=== PATIENT | female | born 1940 | race Caucasian/White ===

== ENCOUNTER 2018-10-25 16:23 | Observation (INO) | payer MEDICARE ==
[~2018-10-25 16:23] MED LIST: ISOVUE-370 76%-LOCM 1 ML ONE
[2018-10-25 16:49] LABS: #Eosinphils 0.2 thou/uL (0.0-0.7); #Lymphocytes 1.3 thou/uL (1.20-3.40); #Neutrophils 4.5 thou/uL (1.40-6.50); %Basophils 0.6 % (0.0-1.0); %Eosinophils 2.6 % (0.0-10.0); %Lymphocytes 18.9 % (21.0-51.0); %Monocytes 14.5 % (0.0-10.0); %Neutrophils 63.5 % (42.0-75.0); Hemoglobin 12.1 g/dL (12.0-16.0); Mean Corpuscular HGB CONC 33.3 g/dL (32.0-36.0); Mean Corpuscular Hemoglobin 30.7 pg (27.0-31.0); Mean Corpuscular Volume 92.3 fL (78.0-98.0); Mean Platelet Volume 7.6 fL (7.4-10.4); Platelet Count 131 thou/uL (130-400); RBC Distribution Width 12.3 % (11.5-14.5); Red Blood Cell (RBC) Count 3.94 mill/uL (4.20-5.40); White Blood Cell (WBC) Count 7.1 thou/uL (4.8-10.8)
--- NOTE | 2018-10-25 16:52 | RAD ---
CHEST ONE VIEW: 10/25/18 HISTORY: Chest pain and back pain. COMPARISON: None. FINDINGS: Lungs are hyperinflated. Mild scarring in both lung bases. The cardiac silhouette is within normal li mits for age. No acute osseous abnormality. IMPRESSION: 1. Mild lung hyperinflation suggesting obstructive pulmonary disease. 2. Density peripheral aspect of the left upper lobe. Nonemergent CT of the chest is recommended for evaluation. POS: HOME
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
[2018-10-25 17:08] LABS: ALT (SGPT) 19 U/L (8-55); AST (SGOT) 34 U/L (5-34); Albumin 3.9 g/dL (3.4-4.8); Alkaline Phosphatase 73 U/L (40-150); Anion Gap 13 mmol/L (10-20); BUN (Urea Nitrogen) 24 mg/dL (9.8-20.1); Bilirubin, Total 0.5 mg/dL (0.2-1.2); Calc. Creatinine Clearance 0 mL/min (70-130); Carbon Dioxide 20 mmol/L (23-31); Chloride 103 mmol/L (98-107); Estimated GFR-MDRD 59; Globulin 2.6 g/dL (2.4-3.5); Glucose 131 mg/dL (83-110); Lipase 71 U/L (8-78); Potassium 4.4 mmol/L (3.5-5.1); Protein, Total 6.5 g/dL (6.0-8.3); Sodium 132 mmol/L (136-145)
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
[2018-10-25] MEDS ORDERED: Ondansetron PF 4 MG/2 ML Vial ONE (18:58)
[2018-10-25] MEDS ORDERED: Fentanyl 100 MCG/2 ML VIAL ONE (18:58)
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
[2018-10-25] MEDS ORDERED: hydrALAZINE 20 MG/ML VIAL SLOW IVP PRN (20:22)
[2018-10-25] MEDS ORDERED: traMADol HCl 50 MG TAB PO PRN (20:22)
[2018-10-25] MEDS ORDERED: Ondansetron PF 4 MG/2 ML Vial IVP PRN (20:22)
[2018-10-25] MEDS ORDERED: Cyclobenzaprine 10 MG TAB PO PRN (20:22)
[2018-10-25] MEDS ORDERED: Dextrose 5% in Water 1,000 ML IV PRN (20:22)
[2018-10-25] MEDS ORDERED: Dextrose 50% Abboject 50 ML SYRINGE SLOW IVP PRN (20:22)
[2018-10-25] MEDS ORDERED: Ondansetron ODT 4 MG TAB PO PRN (20:22)
[2018-10-25] MEDS: Acetaminophen 500 MG TAB PO SCH (21:23)
[2018-10-25] MEDS: traMADol HCl 50 MG TAB PO PRN (21:24)
[2018-10-25] MEDS: Ibuprofen 600 MG TAB PO SCH (21:24)
[2018-10-25] MEDS: Famotidine 20 MG TAB PO SCH (21:24)
[2018-10-25 23:50] VITALS: BMI 24.4
[2018-10-26] MEDS: Acetaminophen 500 MG TAB PO SCH ×4 (03:45→20:36)
[2018-10-26] MEDS: traMADol HCl 50 MG TAB PO PRN ×3 (03:46→18:23)
[2018-10-26] MEDS: Ibuprofen 600 MG TAB PO SCH ×3 (03:46→20:36)
[2018-10-26 05:43] LABS: Anion Gap 15 mmol/L (10-20); BUN (Urea Nitrogen) 24 mg/dL (9.8-20.1); Calc. Creatinine Clearance 50 mL/min (70-130); Carbon Dioxide 18 mmol/L (23-31); Chloride 104 mmol/L (98-107); Estimated GFR-MDRD 52; Glucose 114 mg/dL (83-110); Potassium 4.7 mmol/L (3.5-5.1); Sodium 132 mmol/L (136-145)
[2018-10-26 06:09] LABS: Band 2 % (5-11); Eosinophils 1 % (0-10); Hemoglobin 10.3 g/dL (12.0-16.0); Lymphocytes 23 % (21-51); MDiff Complete? YES; Mean Corpuscular Volume 91.3 fL (78.0-98.0); Monocytes 14 % (0-10); Neutrophil 60 % (42-75); Platelet Count 128 thou/uL (130-400); Platelet Morphology Comment Appears Decreased; RBC Distribution Width 12.4 % (11.5-14.5); Red Blood Cell (RBC) Count 3.31 mill/uL (4.20-5.40); White Blood Cell (WBC) Count 7.4 thou/uL (4.8-10.8)
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
[2018-10-26] MEDS: Famotidine 20 MG TAB PO SCH ×2 (09:46→20:36)
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
[2018-10-26] MEDS: Dronedarone HCl 400 MG TAB PO SCH (18:23)
[2018-10-26] MEDS ORDERED: Rosuvastatin 20 MG TAB PO SCH (21:00)
[2018-10-27] MEDS: Acetaminophen 500 MG TAB PO SCH ×3 (03:24→15:33)
[2018-10-27] MEDS: Ibuprofen 600 MG TAB PO SCH ×2 (03:24→15:32)
[2018-10-27] MEDS ORDERED: Levothyroxine Sodium 112 MCG TAB PO SCH (06:00)
[2018-10-27] MEDS: Dronedarone HCl 400 MG TAB PO SCH (09:33)
[2018-10-27] MEDS: Famotidine 20 MG TAB PO SCH (09:33)
[2018-10-27 15:28] VITALS: BP 119/71; TEMP 97.6
[2018-10-27] MEDS ORDERED: Rivaroxaban 15 MG TAB PO SCH (17:00)
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
== END 2018-10-27 17:40 | disposition home or self-care (01) ==
LOC: ERS 16:23 → SURG B 18:18
PROVIDERS: ADMIT Specialist; ATTEND Specialist
DX: S22.41XA Multiple fractures of ribs, right side, initial encounter for closed fracture (principal); S22.21XA Fracture of manubrium, initial encounter for closed fracture; S32.009A Unspecified fracture of unspecified lumbar vertebra, initial encounter for closed fracture; I48.91 Unspecified atrial fibrillation; E03.9 Hypothyroidism, unspecified; E78.5 Hyperlipidemia, unspecified; Z88.5 Allergy status to narcotic agent; Z79.01 Long term (current) use of anticoagulants; Z79.899 Other long term (current) drug therapy; V89.2XXA Person injured in unspecified motor-vehicle accident, traffic, initial encounter
CPT/HCPCS: 70450; 71045 ×2; 71260; 72125; 74177; 80048; 80053; 83690; 84484; 85025 ×2; 93005; 94760; 96374; 96375; 97139 ×2; 99285; G0378 ×2; 36415; G0390; J2405; J3010; Q9966